=== PATIENT | male | born 1950 | race Caucasian/White ===

== ENCOUNTER → 2017-05-03 | Day surgery (SDC) | payer MEDICARE, BC ==
[~2017-05-03] MED LIST: ALBUTEROL17 GM INH; LISINOPRIL PO
--- NOTE | ~2017-05-03 | OR ---
Unit #: [id number] #: [id number] Patient: EJ HALL [id number] [address] [place], [place] [address] [id number] MR#: [id number] NAME: EJ HALL ROOM: Date of Procedure: 05/03/2017 Admission Date: 05/03/2017 Surgeon: Ky Low M.D. : 1950 Attending Physician: Ky Low M.D. OPERATIVE REPORT PREOPERATIVE DIAGNOSIS Colorectal cancer screening. PROCEDURES PERFORMED Colonoscopy with polypectomy and colonoscopy with directed submucosal injection. POSTOPERATIVE DIAGNOSES 1. The patient had multiple polyps. There were 3 polyps in the transverse colon, 1 polyp in the sigmoid colon, 1 polyp in the descending colon, and 1 polyp at the splenic flexure. The splenic flexure polyp was the largest polyp about 2.5 cm in size. It was removed after submucosal injection with methylene blue and methylcellulose and polyp bed elevation. Total polypectomy was done and the residual gap left by polypectomy closed using an Endoclip. The remaining polyps were all varied between the 5 mm to 1 cm each and were sessile and removed using snare polypectomy. 2. The patient also had mild sigmoid and descending colon diverticulosis. 3. Rest of the examination up to cecum was normal. The quality of the prep was good. RECOMMENDATIONS Follow up the results of polyp histology and consider repeat colonoscopy in 3 years. If the patient has high-grade dysplasia, this interval would be one year. SEDATION USED MAC. DESCRIPTION OF PROCEDURE Following detailed explanation of potential risks and complications of a colonoscopy, namely perforation, bleeding, and complications related to sedation, the patient was brought to GI lab and laid in left lateral decubitus position. A digital rectal examination was performed, which was normal. Lubricated tip of the Olympus video colonoscope was inserted through the anus and advanced under direct vision. The scope was advanced and passed up to sigmoid into descending colon. Multiple polyps were seen along the way and were removed during the antegrade part of the examination. There was 1 polyp in the sigmoid colon, 1 in the descending colon, and 3 in the transverse colon that were removed during insertion phase of examination. The polyps ranged in size from 7 mm to 1 cm each. All were removed using snare polypectomy, retrieved and sent for histology. There were also scant sigmoid and descending colon Unit #: [id number] #: [id number] Patient: EJ HALL diverticulosis. The scope tip was then navigated all the way up to cecum with visualization of the ileocecal valve and the appendiceal orifice. Preparation was good with good visualization and photodocumentation was obtained. Successive segments of the colonic mucosa were examined upon withdrawal. In addition, a large polyp about 2.5 cm in size was seen in the splenic flexure. The latter was also removed using snare cautery polypectomy after submucosal saline injection with methylene blue and methylcellulose. The polyp was removed in toto and sent for histology. The gap left by polypectomy site was closed using an Endoclip or hemoclip. Excellent hemostasis was achieved. No additional polyps noted. Other than the scant diverticula seen in the left side, no other abnormalities were found. The scope was then withdrawn. The patient returned to the recovery area. He tolerated the procedure without any postprocedure complications. Dictated by... Madalyn Epstein/dolores TD: 05/03/2017 13:57 JOB #: [id number] CC: Bev Randall M.D. OPERATIVE REPORT Page 1 of 1 X Ky Low MD X PROCEDURE OPERATIVE NOTE
== END | disposition home or self-care (01) ==
LOC: COPS 03-03 13:00
DX: Z12.11 Encounter for screening for malignant neoplasm of colon (principal); D12.3 Benign neoplasm of transverse colon; D12.4 Benign neoplasm of descending colon; D12.5 Benign neoplasm of sigmoid colon; K57.30 Diverticulosis of large intestine without perforation or abscess without bleeding; J45.909 Unspecified asthma, uncomplicated; I10 Essential (primary) hypertension; Z79.899 Other long term (current) drug therapy
CPT/HCPCS: 88305; J2250; Q9968